=== PATIENT | male | born 1955 | race Caucasian/White ===

== ENCOUNTER → 2021-01-07 16:05 | Outpatient (CLI) | payer MEDICARE, OTHER, SELFPAY ==
--- NOTE | 2021-01-07 16:20 | MRI_ITS ---
STUDY: MRI RIGHT SHOULDER REASON FOR EXAM: Right shoulder pain for 2 years. TECHNIQUE: Standardized fat and water weighted pulse sequences were obtained in all 3 orthogonal planes. COMPARISON: None. FINDINGS: There is supraspinatus tendinosis and a small full-thickness tear of the distal anterior supraspinatus tendon (T2 coronal image 6; T2 sagittal image 6) measuring approximately 0.8 x 0.6 cm (length x width) with delamination (T2 coronal images 11-13. There is mild infraspinatus tendinosis (T2 coronal image 7) without discrete tendon tear. There is an undersurface/intrasubstance partial thickness tear of the subscapularis tendon with medial dislocation of the long biceps tendon (proton-density axial images 10-14). Normal teres minor tendon. There is mild atrophy with mild partial fat replacement of the supraspinatus and infraspinatus muscles (T2 sagittal images 13-19). Normal subscapularis muscle. Normal teres minor muscle. Normal glenohumeral articulation. Normal humeral head and visualized proximal humerus. Normal biceps labral complex. Normal labrum. Normal capsulo- ligamentous complex. There is acromioclavicular arthrosis with undersurface osteophytes effacing the subacromial fat (T2 sagittal images 14-16). There is a Type II morphology (curved), with a neutral orientation. There is a small volume of subacromial-subdeltoid bursal fluid. There is thickening of the coracoacromial ligament (T2 sagittal image 10). Normal deltoid muscle. Normal trapezius muscle. MRI/Upper Ext Joint Only(Routine) IMPRESSION: Small full-thickness tear and tendinosis of the supraspinatus tendon. Undersurface/intrasubstance partial-thickness tear of the subscapularis tendon with medial dislocation of the long biceps tendon. Mild infraspinatus tendinosis. Mild atrophy of the supraspinatus and infraspinatus muscles. Acromioclavicular arthrosis. Thickening of the coracoacromial ligament. Small volume of subacromial-subdeltoid bursal fluid. Electronically Signed: Luis Pierre MD at 9:02 EDT Tel , Service support ,
== END ==
PROVIDERS: PCP Internal Medicine; Referring Provider Internal Medicine Rheumatology; Visit Provider Internal Medicine Rheumatology
DX: M75.101 Unspecified rotator cuff tear or rupture of right shoulder, not specified as traumatic (principal)
CPT/HCPCS: 73221